=== PATIENT | male | born 1945 | race Caucasian/White ===

== ENCOUNTER → 2016-05-27 | Outpatient (CLI) | payer MEDICARE, OTHER ==
[~2016-05-27] MED LIST: ASPI-482 PO; CYCL10TA2 PO; DESM0.2T2 PO; DILT180C67 PO; DONE10TA7 PO; FINA5TAB4 PO; IMIP50TA3 PO; LEVE500T6 PO; LEVO500T8 PO; LOSA100T6 PO; POTA10TA5 PO; PRAM0.255 PO; TAMS0.4C2 PO; VENL37.56 PO; diclofenac PO
[2016-05-27 12:10] VITALS: BP 113/73
--- NOTE | 2016-05-27 16:50 | RAD ---
PROCEDURE MRI of the thoracic spine without contrast 05/27/2016 HISTORY Mid/lower back pain post fall. TECHNIQUE Unenhanced T1 weighted, T2 weighted and inversion recovery sagittal and T1 weighted and T2 weighted axial images of the thoracic spine were obtained. FINDINGS Very mild S-shaped curvature of the thoracolumbar spine is seen. Acute compression fractures are seen involving superior endplates of the T11 and T12 vertebral bodies. No retropulsion of bone fragments into the central spinal canal is seen. These vertebral bodies have lost approximately 15 percent of their normal height. No additional acute compression fracture of the thoracic vertebrae is seen. Schmorl's node formation is seen involving the superior endplates of the T for and T5 vertebral bodies. Degenerative signal changes are seen involving the discs of the lower thoracic spine. A small syrinx is seen involving the thoracic spinal cord at the T5-6 level. This measures 1.6 centimeter in length and 2 millimeters in greatest AP diameter. There is no evidence of Chiari 1 malformation on the localizing images of the cervical spine. No additional area of abnormal signal intensity is seen involving the thoracic spinal cord. Degenerative changes are seen involving the mid and lower thoracic disc spaces consisting of minimal generalized disc bulges and degenerative changes involving the facet joints. These findings do not result in definite areas of significant central spinal canal or neural foraminal stenosis. IMPRESSION Acute compression fractures are seen involving the T11 and T12 vertebral bodies. No retropulsion of bone fragments into the central spinal canal is seen. Electronically signed by: Wander Mccall MD (May 27, 2016 16:48:38)
== END | disposition home or self-care (01) ==
LOC: MRI 13:19
PROVIDERS: ATTEND Radiology Vascular & Interventional Radiology
DX: M54.6 Pain in thoracic spine (principal)
CPT/HCPCS: 72146

== ENCOUNTER 2016-05-28 06:22 | Outpatient (CLI) | payer MEDICARE, OTHER ==
[2016-05-28] VITALS (7 sets, daily range): BP systolic 123–187; BP diastolic 79–90
[~2016-05-28] VITALS: Ht 175.3 cm; Wt 90.7 kg
[2016-05-28] MEDS ORDERED: DILT180C67 PO (07:17)
[2016-05-28] MEDS ORDERED: IMIP50TA3 PO (07:17)
[2016-05-28] MEDS ORDERED: LEVE500T6 PO (07:17)
[2016-05-28] MEDS ORDERED: ASPI-482 PO (07:17)
[2016-05-28] MEDS ORDERED: DESM0.2T2 PO (07:17)
[2016-05-28] MEDS ORDERED: diclofenac PO (07:17)
[2016-05-28] MEDS ORDERED: LOSA100T6 PO (07:17)
[2016-05-28] MEDS ORDERED: CYCL10TA2 PO (07:17)
[2016-05-28] MEDS ORDERED: PRAM0.255 PO (07:17)
[2016-05-28] MEDS ORDERED: TAMS0.4C2 PO (07:17)
[2016-05-28] MEDS ORDERED: POTA10TA5 PO (07:17)
[2016-05-28] MEDS ORDERED: DONE10TA7 PO (07:17)
[2016-05-28] MEDS ORDERED: VENL37.56 PO (07:17)
[2016-05-28] MEDS ORDERED: FINA5TAB4 PO (07:17)
[2016-05-28] MEDS ORDERED: LEVO500T8 PO (07:17)
[2016-05-28 07:19] LABS: BASO % 1 % (0-3); EOS % 4 % (0-3); HEMATOCRIT 43.9 % (39.0-53.0); HEMOGLOBIN 14.5 g/dL (13.0-17.5); LYMPH # 1.5 x10^3/uL (1.0-4.8); LYMPH % 28 % (24-48); MEAN CORPUSCULAR HEMOGLOBIN 31 pg (25-35); MEAN CORPUSCULAR HGB CONC 33 g/dL (31-37); MEAN CORPUSCULAR VOLUME 93 fL (79-100); MONO % 10 % (0-9); NEUT % 57 % (31-73); PLATELET COUNT 238 x10^3/uL (140-400); RED CELL DISTRIBUTION WIDTH 13.9 % (11.5-14.5); WHITE BLOOD COUNT 5.3 x10^3/uL (4.0-11.0)
[2016-05-28 07:25] LABS: CALCIUM 8.5 mg/dL (8.5-10.1); CREATININE 1.1 mg/dL (0.7-1.3); GFR 65.8; POTASSIUM 4.5 mmol/L (3.5-5.1)
[2016-05-28 07:32] LABS: INR 1.3 (0.8-1.1)
[2016-05-28] MEDS ORDERED: IOHEXOL 300 MG/ML 50 ML VIAL. ONE (08:17)
[2016-05-28] MEDS ORDERED: LIDOCAINE 1% / SOD BICARB 8.4% 20 ML VIAL. IJ ONE ×2 (08:18→09:15)
[2016-05-28] MEDS ORDERED: FENTANYL PF 250 MCG/5 ML VIAL. ONE (09:00)
[2016-05-28] MEDS ORDERED: CEFAZOLIN 1GM IVPB FOR OMNI 50 ML IV ONE ×2 (09:00→09:15)
[2016-05-28] MEDS ORDERED: MIDAZOLAM HCL/PF 5 MG/5 ML VIAL ONE (09:00)
--- NOTE | 2016-05-28 09:10 | PDOC1 ---
IR Pre-Procedure H&P-Dr. Palomo H&P Update No significant change from my IR OP consultation done yesterday. 70 YO male with acute T11 and T12 fractures, with severe pain. T11 and T12 kyphoplasty planned today. DAVID GROVER MD May 28, 2016 09:10
[2016-05-28] MEDS ORDERED: MIDAZOLAM HCL/PF 5 MG/5 ML VIAL IV ONE (09:15)
[2016-05-28] MEDS ORDERED: FENTANYL PF 250 MCG/5 ML VIAL. IV ONE (09:15)
[2016-05-28] MEDS ORDERED: IOHEXOL 300 MG/ML 50 ML VIAL. IART ONE (09:15)
[2016-05-28] MEDS ORDERED: KETOROLAC TROMETHAMINE 30 MG/ML SYRINGE. IV PRN (10:15)
--- NOTE | 2016-05-28 10:18 | PDOC ---
MODERATE SEDATION ASSESSMENT RISKS/ALTERNATIVES Risks/Alternatives Risks and alternatives of this type of sedation and procedure discussed with: RISK/ALTERNATIVES: Patient H & P ON CHART H & P H & P on chart and reviewed for co-morbid conditions and appropriate labs. H&P ON CHART: Yes STATUS PREG STATUS ASSESSED: N/A MEDS/ALLERGIES REVIEWED Meds/Allergies Reviewed Medications and Allergies including time and route of recently administered narcotics and sedatives. MEDS/ALLERGIES REVIEWED: Yes ASA RATING ASA RATING: III AIRWAY ASSESSMENT Airway Assessment Airway patency, oral function limitations, presence of caps, crowns, dentures, partials, and ability to extend neck assessed. AIRWAY ASSESSMENT: Yes MALLAMPATI SCORE MALLAMPATI SCORE: III PRE-SEDATION ASSESSMENT PRE-SEDATION ASSESSMENT: Yes DAVID GROVER MD May 28, 2016 10:17
--- NOTE | 2016-05-28 10:20 | PDOC ---
Exam Network Professional Network Professional [place] Budget Consultant Budget Consultant F Ndumbu Pre-Procedure Diagnosis Pre-Procedure Diagnosis Recent T11 and T12 compression fractures, with severe pain Post-Procedure Diagnosis Post-Procedure Diagnosis Same Procedure Performed Procedure Performed Fluoro guided T11 and T12 kyphoplasty Type of Anesthesia Type of Anesthesia Local + Mod sedation Estimated Blood Loss EBL: Minimal Condition of Patient Condition of Patient Stable. No apparent complication Disposition Disposition Home from [facility] post recovery, if no problems. F/u with Dr Serna. Full report to follow. DAVID GROVER MD May 28, 2016 10:20
--- NOTE | 2016-05-28 13:13 | RAD ---
Fluoro guided T11 and T12 kyphoplasty Indication: 70-year-old male with recent T11 and T12 vertebral body compression fractures, with lifestyle limiting back pain. Fluoro time: 23.3 minutes Kerma-Area Product: 144 Gycm2 Moderate sedation: 50 minutes moderate sedation was provided utilizing a total of 3 mg Versed and 150 mcg fentanyl, IV. The patient was appropriately monitored by a qualified independent observer throughout the course of the moderate sedation. Antibiotic: A single dose of Ancef was administered within 1 hour of the procedure start time. Consent: The procedure was explained in its entirety to the patient and/or the patient's designated printing sales representative by a member of the treatment team. This included a discussion of risks and benefits and commonly accepted alternatives to the procedure, as well as expected consequences of no treatment at all. Discussion of risks included, but was not limited to, those that are most frequent and those that are rare, but possibly severe or life-threatening, as well as the possibility of unforeseen complications. Sterility: All elements of maximal sterile barrier technique, including the use of a cap, mask, sterile gown, sterile gloves, large sterile sheet, appropriate hand hygiene, and 2% chlorhexidine for cutaneous antisepsis (or acceptable alternative antiseptic per current guidelines) were utilized. Procedure: Informed was obtained from the patient. He was placed prone on the angiography table. Midline low thoracic spine was prepped and draped in the usual sterile fashion, utilizing all elements of maximal sterile barrier technique, as described above. Moderate sedation was provided with IV Fentanyl and Versed. 1 gram Ancef was given IV, prophylactically. Using aseptic technique, local anesthesia, and direct fluoroscopic guidance a 10 gauge vertebral augmentation needle was successfully introduced into anterior midline of the T12 vertebral body, via unilateral right transpedicular approach. Similarly, using aseptic technique, local anesthesia, and direct fluoroscopic guidance, an additional 10-gauge vertebral augmentation needle was successfully introduced into anterior midline of the T11 vertebral body, via left transpedicular access. 15 mm vertebral augmentation balloons were then coaxially introduced through the T11 and T12 kyphoplasty needles. The balloons were gently inflated under fluoroscopic control, creating pockets suitable to accept vertebral augmentation cement. Both balloons were then deflated and removed. Contrast opacified polymethylmethacrylate was then very slowly and carefully introduced through the vertebral augmentation needles at both levels, using strict fluoroscopic control. There was resulting good filling of the T11 and T12 vertebral bodies, without significant extraosseous extravasation of opacified cement. The vertebral augmentation needles were then removed and sterile dressings were applied. Patient tolerated the procedure well, without apparent complication. Impression: Successful, uneventful fluoro guided T11 and T12 kyphoplasty , as described.
== END 2016-05-28 12:25 | disposition home or self-care (01) ==
LOC: INTRAD 06:22
PROVIDERS: ATTEND Radiology Vascular & Interventional Radiology
DX: S22.088A Other fracture of T11-T12 vertebra, initial encounter for closed fracture (principal); I10 Essential (primary) hypertension; X58.XXXA Exposure to other specified factors, initial encounter; Y93.9 Activity, unspecified; Y92.9 Unspecified place or not applicable; Y99.9 Unspecified external cause status; Z98.41 Cataract extraction status, right eye; Z98.42 Cataract extraction status, left eye; Z95.1 Presence of aortocoronary bypass graft
CPT/HCPCS: 22513; 22515; 36415; 80048; 85027; 85610; C1725; C1892; J0690; J2250; J3010; Q9967

== ENCOUNTER 2019-12-26 08:39 | Emergency (ER) | payer MEDICARE ==
[~2019-12-26] VITALS: Ht 177.8 cm; Wt 80.0 kg
[~2019-12-26 08:39] MED LIST changes: +ATOR40TA59 PO; -DESM0.2T2 PO; +DESM0.2T5 PO; +LEVO500T59 PO; +LOSA100T14 PO; -LOSA100T6 PO; +MEMA10TA PO; +METO-239 PO; +POTA10TA12 PO; -POTA10TA5 PO
[2019-12-26 10:35] LABS: CALCIUM 8.9 mg/dL (8.5-10.1); GFR 72.6; POTASSIUM 3.8 mmol/L (3.5-5.1)
[2019-12-26 10:37] LABS: BASO % 0 % (0-3); EOS # 0.1 x10^3/uL (0.0-0.7); EOS % 1 % (0-3); HEMATOCRIT 44.2 % (39.0-53.0); HEMOGLOBIN 15.5 g/dL (13.0-17.5); LYMPH % 14 % (24-48); MEAN CORPUSCULAR HEMOGLOBIN 32 pg (25-35); MEAN CORPUSCULAR HGB CONC 35 g/dL (31-37); MEAN CORPUSCULAR VOLUME 93 fL (79-100); MONO # 0.6 x10^3/uL (0.0-1.1); MONO % 10 % (0-9); NEUT % 75 % (31-73); PLATELET COUNT 212 x10^3/uL (140-400); RED BLOOD COUNT 4.78 x10^6/uL (4.30-5.70); RED CELL DISTRIBUTION WIDTH 13.9 % (11.5-14.5); WHITE BLOOD COUNT 6.7 x10^3/uL (4.0-11.0)
[2019-12-26 10:40] LABS: ALBUMIN 3.3 g/dL (3.4-5.0); ALBUMIN/GLOBULIN RATIO 0.8 (1.0-1.7); TOTAL BILIRUBIN 0.4 mg/dL (0.2-1.0); TOTAL PROTEIN 7.2 g/dL (6.4-8.2)
[2019-12-26] MEDS ORDERED: IOHEXOL 300 MG/ML 100ML VIAL. IV ONE (10:45)
[2019-12-26] MEDS ORDERED: CONTRAST GIVEN. MC PRN (11:00)
--- NOTE | 2019-12-26 11:44 | RAD ---
Exam: CT abdomen/pelvis with intravenous contrast, CT lumbar spine with contrast Indication: Back pain and constipation for 1.5 weeks. Comparison: CT abdomen and pelvis 04/28/2015 Technique: Helical CT imaging performed of the abdomen and pelvis after the intravenous administration of 75 mL Omnipaque 300 intravenous contrast contrast. Sagittal and coronal reformats were obtained. Multiplanar CT lumbar spine images reconstructed from CT abdomen and pelvis. One or more of the following individualized dose reduction techniques were utilized for this examination: 1. Automated exposure control 2. Adjustment of the mA and/or kV according to patient size 3. Use of iterative reconstruction technique. FINDINGS: CT ABDOMEN AND PELVIS: Lower chest: 3 mm pulmonary nodule in the right lower lobe is unchanged from 2016. There is slightly increased reticular changes in the lung bases. The heart is normal in size. There is calcified coronary artery atherosclerosis. Liver: Liver is normal in size. There are few calcified granulomas. No focal lesion. Gallbladder/Biliary Tree: A few tiny calculi layering in the gallbladder lumen. Bile ducts are normal. Pancreas: Mild pancreatic atrophy, greatest in the head. There is suggestion of a slightly hyperdense mass in the pancreatic tail measuring 1.3 x 1.1 cm (image 25, series 2). No pancreatic duct dilatation. Spleen: Calcified splenic granulomas. No splenomegaly. Adrenal Glands: Normal. Kidneys/Ureters/Bladder: Kidneys are normal in size and enhance symmetrically. There is a 2 mm left renal calculus. No hydronephrosis. Ureters are normal. Mild circumferential bladder wall thickening. Reproductive Organs: Prostate gland is normal in size. Stomach, small bowel, and colon: Stomach is incompletely distended limiting evaluation. No small bowel obstruction. The appendix is normal. There is descending and sigmoid diverticulosis without inflammation. Large volume of stool in the colon. Vasculature: Abdominal aorta is normal in caliber. There is moderate calcified aortoiliac atherosclerosis and calcifications of the mesenteric arteries. Lymph Nodes: No lymphadenopathy. Peritoneum and retroperitoneum: No free fluid or free air. Bones: There is a superior endplate compression fracture of L1 with mild height loss, new from 2016 and likely acute. Compression fractures post vertebroplasty are seen at T11 and T12, also new from 2016. There is unchanged moderate degenerative disc disease and facet arthrosis at L4-L5 and L5-S1. Miscellaneous: Right inguinal hernia with new small fluid collection in the right groin along the spermatic cord measuring 2.[address] LUMBAR SPINE: There are 5 nonrib-bearing lumbar vertebral bodies. A superior endplate compression fracture of L1 with mild height loss is new from 2016 and likely acute. No retropulsion. There are compression fractures post vertebroplasty at T11-T12. Moderate disc space narrowing at L5-S1 with posterior endplate proliferation resulting in mild bilateral foraminal narrowing is unchanged. Probable left lateral recess narrowing at this level. There is mild disc space narrowing with tiny disc bulges at the other levels. No significant central canal narrowing. Severe right and moderate left facet arthrosis at L4-L5. Moderate bilateral facet arthrosis at L5-S1. Mild degenerative changes of the sacroiliac joints. Calcifications in the abdominal aorta and its branches noted. IMPRESSION: CT abdomen and pelvis impression: 1. No acute intra-abdominal/pelvic abnormality. 2. Suggestion of 1.3 cm mass in the pancreatic tail. Neoplasm is possible. Consider CT or MRI of the pancreas to further evaluate. 3. Large volume of stool. Descending and sigmoid colonic diverticulosis. 4. Left nephrolithiasis. Cholelithiasis. 5. Small right inguinal hernia with new small amount of fluid along the spermatic cord, nonspecific. CT lumbar spine impression: 1. New L1 compression fracture with mild height loss, likely acute. 2. Degenerative disc disease, greatest at L5-S1. Electronically signed by: Colleen Shaikh MD (12/26/2019 11:42 AM) [id number]
--- NOTE | 2019-12-26 11:50 | NUR ---
Assisted patient with incontience care @1150 Changed Breif
--- NOTE | 2019-12-26 11:55 | PHYS DOC ---
Past Medical History Past Medical History: Diabetes-Type II, High Cholesterol, Hypertension, Seizure Past Surgical History: Coronary Bypass Surgery Smoking Status: Current Every Day Smoker Alcohol Use: Occasionally Drug Use: None General Adult EDM: Chief Complaint: CONSTIPATION HPI: HPI: 74-year-old male past medical history of dementia and CAD, presents to the ED with patient's [id number] with concern for low back pain after patient fell 1 week ago, fall was unwitnessed. Has not had a bowel movement since then. No relief with Colace. Patient has a long history of urinary incontinence. On no AC. Review of Systems: Review of Systems: Constitutional: Denies fever or chills. [] Eyes: Denies change in visual acuity. [] HENT: Denies nasal congestion or sore throat. [] Respiratory: Denies cough or shortness of breath. [] Cardiovascular: Denies chest pain or edema. [] GI: Denies abdominal pain, nausea, vomiting, bloody stools or diarrhea. [] : Denies dysuria. [] Musculoskeletal: Denies joint pain. [] Integument: Denies rash. [] Neurologic: Denies headache, focal weakness or sensory changes. [] Endocrine: Denies polyuria or polydipsia. [] Lymphatic: Denies swollen glands. [] Psychiatric: Denies depression or anxiety. [] Heart Score: Risk Factors: Risk Factors: DM, Current or recent (<one month) smoker, HTN, HLP, family history of CAD, obesity. Risk Scores: Score 0 - 3: 2.5% MACE over next 6 weeks - Discharge Home Score 4 - 6: 20.3% MACE over next 6 weeks - Admit for Clinical Observation Score 7 - 10: 72.7% MACE over next 6 weeks - Early Invasive Strategies Current Medications: Current Medications Medications (Trade) Dose Ordered Sig/Suman Start Time Stop Time Status Last Admin Dose Admin Info (CONTRAST GIVEN -- Rx MONITORING) 1 each PRN DAILY PRN 12/26/19 11:00 12/28/19 10:59 Iohexol (Omnipaque 300 Mg/ml) 75 ml 1X ONCE 12/26/19 10:45 12/26/19 10:46 DC 12/26/19 10:49 75 ML Allergies: Allergies: Allergies Coded Allergies Type Severity Reaction Last Updated Verified No Known Drug Allergies 05/24/14 No Physical Exam: PE: Constitutional: Well developed, well nourished, no acute distress, non-toxic appearance. [] HENT: Normocephalic, atraumatic, bilateral external ears normal, oropharynx moist, no oral exudates, nose normal. [] Eyes: PERRLA, EOMI, conjunctiva normal, no discharge. [] Neck: Normal range of motion, no tenderness, supple, no stridor. [] Cardiovascular:Heart rate regular rhythm, no murmur [] Lungs & Thorax: Bilateral breath sounds clear to auscultation [] Abdomen: Bowel sounds normal, soft, no tenderness, no masses, no pulsatile masses. [] Skin: Warm, dry, no erythema, no rash. [] Back: _lumbar ttp midline, no CVA tenderness. [] Extremities: No tenderness, no cyanosis, no clubbing, ROM intact, no edema. [] Neurologic: Alert, at baseline, normal motor function, normal sensory function, no focal deficits noted. [] Psychologic: Affect normal, judgement normal, mood normal. [] Current Patient Data: Labs: Laboratory Tests Test 12/26/19 10:05 White Blood Count 6.7 x10^3/uL (4.0-11.0) Red Blood Count 4.78 x10^6/uL (4.30-5.70) Hemoglobin 15.5 g/dL (13.0-17.5) Hematocrit 44.2 % (39.0-53.0) Mean Corpuscular Volume 93 fL (79-100) Mean Corpuscular Hemoglobin 32 pg (25-35) Mean Corpuscular Hemoglobin Concent 35 g/dL (31-37) Red Cell Distribution Width 13.9 % (11.5-14.5) Platelet Count 212 x10^3/uL (140-400) Neutrophils (%) (Auto) 75 % (31-73) H Lymphocytes (%) (Auto) 14 % (24-48) L Monocytes (%) (Auto) 10 % (0-9) H Eosinophils (%) (Auto) 1 % (0-3) Basophils (%) (Auto) 0 % (0-3) Neutrophils # (Auto) 5.0 x10^3/uL (1.8-7.7) Lymphocytes # (Auto) 1.0 x10^3/uL (1.0-4.8) Monocytes # (Auto) 0.6 x10^3/uL (0.0-1.1) Eosinophils # (Auto) 0.1 x10^3/uL (0.0-0.7) Basophils # (Auto) 0.0 x10^3/uL (0.0-0.2) Sodium Level 133 mmol/L (136-145) L Potassium Level 3.8 mmol/L (3.5-5.1) Chloride Level 100 mmol/L (98-107) Carbon Dioxide Level 27 mmol/L (21-32) Anion Gap 6 (6-14) Blood Urea Nitrogen 18 mg/dL (8-26) Creatinine 1.0 mg/dL (0.7-1.3) Estimated GFR (Cockcroft-Gault) 72.6 BUN/Creatinine Ratio 18 (6-20) Glucose Level 111 mg/dL (70-99) H Calcium Level 8.9 mg/dL (8.5-10.1) Total Bilirubin 0.4 mg/dL (0.2-1.0) Aspartate Amino Transferase (AST) 15 U/L (15-37) Alanine Aminotransferase (ALT) 23 U/L (16-63) Alkaline Phosphatase 93 U/L (46-116) Total Protein 7.2 g/dL (6.4-8.2) Albumin 3.3 g/dL (3.4-5.0) L Albumin/Globulin Ratio 0.8 (1.0-1.7) L Laboratory Tests 12/26/19 10:05 Laboratory Tests 12/26/19 10:05 Vital Signs: Vital Signs Date Time Temp Pulse Resp B/P (MAP) Pulse Ox O2 Delivery O2 Flow Rate FiO2 12/26/19 10:53 69 150/69 (96) Room Air 12/26/19 10:32 94 12/26/19 09:40 98.3 17 98.3 EKG: EKG: [] Radiology/Procedures: Radiology/Procedures: IMAGING REPORT Signed PATIENT: SUDHAKAR CARDENAS ACCOUNT: [id number] : 1945 LOCATION: ER AGE: 74 SEX: M EXAM STATUS: REG ER ORD. PHYSICIAN: KATHERINE HUGGINS DO REASON: back pain and constipation x 1.5 wks PROCEDURE: CT LUMBAR SPINE RECONSTRUCTION Exam: CT abdomen/pelvis with intravenous contrast, CT lumbar spine with contrast Indication: Back pain and constipation for 1.5 weeks. Comparison: CT abdomen and pelvis 04/28/2015 Technique: Helical CT imaging performed of the abdomen and pelvis after the intravenous administration of 75 mL Omnipaque 300 intravenous contrast contrast. Sagittal and coronal reformats were obtained. Multiplanar CT lumbar spine images reconstructed from CT abdomen and pelvis. One or more of the following individualized dose reduction techniques were utilized for this examination: 1. Automated exposure control 2. Adjustment of the mA and/or kV according to patient size 3. Use of iterative reconstruction technique. FINDINGS: CT ABDOMEN AND PELVIS: Lower chest: 3 mm pulmonary nodule in the right lower lobe is unchanged from 2016. There is slightly increased reticular changes in the lung bases. The heart is normal in size. There is calcified coronary artery atherosclerosis. Liver: Liver is normal in size. There are few calcified granulomas. No focal lesion. Gallbladder/Biliary Tree: A few tiny calculi layering in the gallbladder lumen. Bile ducts are normal. Pancreas: Mild pancreatic atrophy, greatest in the head. There is suggestion of a slightly hyperdense mass in the pancreatic tail measuring 1.3 x 1.1 cm (image 25, series 2). No pancreatic duct dilatation. Spleen: Calcified splenic granulomas. No splenomegaly. Adrenal Glands: Normal. Kidneys/Ureters/Bladder: Kidneys are normal in size and enhance symmetrically. There is a 2 mm left renal calculus. No hydronephrosis. Ureters are normal. Mild circumferential bladder wall thickening. Reproductive Organs: Prostate gland is normal in size. Stomach, small bowel, and colon: Stomach is incompletely distended limiting evaluation. No small bowel obstruction. The appendix is normal. There is descending and sigmoid diverticulosis without inflammation. Large volume of stool in the colon. Vasculature: Abdominal aorta is normal in caliber. There is moderate calcified aortoiliac atherosclerosis and calcifications of the mesenteric arteries. Lymph Nodes: No lymphadenopathy. Peritoneum and retroperitoneum: No free fluid or free air. Bones: There is a superior endplate compression fracture of L1 with mild height loss, new from 2016 and likely acute. Compression fractures post vertebroplasty are seen at T11 and T12, also new from 2016. There is unchanged moderate degenerative disc disease and facet arthrosis at L4-L5 and L5-S1. Miscellaneous: Right inguinal hernia with new small fluid collection in the right groin along the spermatic cord measuring 2.[address] LUMBAR SPINE: There are 5 nonrib-bearing lumbar vertebral bodies. A superior endplate compression fracture of L1 with mild height loss is new from 2016 and likely acute. No retropulsion. There are compression fractures post vertebroplasty at T11-T12. Moderate disc space narrowing at L5-S1 with posterior endplate proliferation resulting in mild bilateral foraminal narrowing is unchanged. Probable left lateral recess narrowing at this level. There is mild disc space narrowing with tiny disc bulges at the other levels. No significant central canal narrowing. Severe right and moderate left facet arthrosis at L4-L5. Moderate bilateral facet arthrosis at L5-S1. Mild degenerative changes of the sacroiliac joints. Calcifications in the abdominal aorta and its branches noted. IMPRESSION: CT abdomen and pelvis impression: 1. No acute intra-abdominal/pelvic abnormality. 2. Suggestion of 1.3 cm mass in the pancreatic tail. Neoplasm is possible. Consider CT or MRI of the pancreas to further evaluate. 3. Large volume of stool. Descending and sigmoid colonic diverticulosis. 4. Left nephrolithiasis. Cholelithiasis. 5. Small right inguinal hernia with new small amount of fluid along the spermatic cord, nonspecific. CT lumbar spine impression: 1. New L1 compression fracture with mild height loss, likely acute. 2. Degenerative disc disease, greatest at L5-S1. Electronically signed by: Colleen Shaikh MD (12/26/2019 11:42 AM) [id number] DICTATED and SIGNED BY: COLLEEN SHAIKH MD DATE: 12/26/19 1142 Course & Med Decision Making: Course & Med Decision Making Pertinent Labs and Imaging studies reviewed. (See chart for details) Concern for constipation and back pain after patient fell a week and a half ago. There is a mild L1 compression fracture, no bowel obstruction. Labs unremarkable. Patient hemodynamically stable and afebrile. Patient in no active distress. discussed narcotic medications-daughter in law declined. Normal renal function-analgesia w/apap and motrin. Pt on colace tid. Also prescribed fiber and magnesium citrate. Encouraged urgent outpatient follow-up with PMD and neurosurgery for pts' mild lumber compression fracture. Life-threatening processes were considered but are low suspicion at this time, given history and physical exam. Pt was educated on all prescription medications and adverse effects. All patient's questions were answered and pt was stable at time of discharge. Differential includes aortic dissection, cauda equina syndrome, transverse myelitis, spinal cord compression, epidural abscess or hematoma, osteomyelitis, disc herniation, surgical abdomen, stable or unstable fracture, renal colic/urosepsis, musculoskeletal injury, traumatic injury, intraabdominal or pelvic bleeding, I spoken with the patient and her caregivers. I explained the patient's condition, diagnoses and treatment plan based on the information available to me at this time. I have answered the patient and her caregiver's questions and addressed any concerns. The patient and her caregivers have a good understanding of patient's diagnosis, condition and treatment plan as can be expected at this point. Vital signs have been stable. Patient's condition is stable and appropriate for discharge from the emergency department. Patient will pursue further outpatient evaluation with primary care physician or other designated or consulting physician as outlined in the discharge instructions. The patient and/or caregivers are agreeable to this plan of care and follow-up instructions have been explained in detail. The patient and/or caregivers have received these instructions in written form and have expressed an understanding of the discharge instructions. The patient and/or caregivers are aware that any significant change of condition or worsening of symptoms should prompt immediate return to this or the closest emergency department or call to 911. Anoop Disclaimer: Anoop Disclaimer: This electronic medical record was generated, in whole or in part, using a voice recognition dictation system. Departure Departure Impression: Primary Impression: Compression fracture of L1 vertebra Additional Impressions: Abdominal mass Constipation Disposition: 01 HOME, SELF-CARE Condition: STABLE Referrals: TATIANA LAND MD (PCP) To discuss CT abdomen/pelvis results/followup: Suggestion of 1.3 cm mass in the pancreatic tail. Neoplasm is possible. Consider CT or MRI of the pancreas to further evaluate. Patient Instructions: Back, Compression Fracture, Constipation, Adult Additional Instructions: Ronaldo Beauchamp MD Primary Specialties Neurological Surgery-for compression fracture [facility] Address: [address] [address] Scripts Magnesium Citrate (MAGNESIUM CITRATE) 296 Ml Solution 296 ML PO ONCE for constipation, #296 ML Drink half a bottle every 12 hours as needed for constipation Prov: KATHERINE HUGGINS DO 12/26/19 Psyllium Husk (Metamucil) 0.4 Gm Capsule 1 CAP PO BID for 30 Days, #60 CAP 0 Refills Prov: KATHERINE HUGGINS DO 12/26/19 Ibuprofen (IBUPROFEN) 600 Mg Tablet 600 MG PO PRN Q6HRS PRN for PAIN, #20 TAB take with food or milk Prov: KATHERINE HUGGINS DO 12/26/19 Justicifation of Admission Dx: Justifications for Admission: Justification of Admission Dx: N/A KATHERINE HUGGINS DO Dec 26, 2019 11:55
[2019-12-26] MEDS ORDERED: MAGN296S68 PO (12:57)
[2019-12-26] MEDS ORDERED: IBUP-1007 PO (12:57)
[2019-12-26] MEDS ORDERED: PSYL0.4C2 PO (12:57)
[2019-12-26 13:23] VITALS: BP 140/71
== END 2019-12-26 14:02 | disposition home or self-care (01) ==
LOC: ER 08:39
DX: S32.018A Other fracture of first lumbar vertebra, initial encounter for closed fracture (principal); K59.00 Constipation, unspecified; M54.5 Low back pain; E11.9 Type 2 diabetes mellitus without complications; E78.00 Pure hypercholesterolemia, unspecified; I10 Essential (primary) hypertension; F17.200 Nicotine dependence, unspecified, uncomplicated; Z98.890 Other specified postprocedural states; W18.39XA Other fall on same level, initial encounter; Y93.89 Activity, other specified; Y92.89 Other specified places as the place of occurrence of the external cause; Y99.8 Other external cause status
CPT/HCPCS: 36415; 74177; 80053; 85025; 99285; Q9967

== ENCOUNTER → 2020-01-11 | Outpatient (CLI) | payer MEDICARE ==
[2019-12-26 13:23] VITALS: BP 140/71
[~2020-01-11] MED LIST changes: +GADOTERATE 7.5 MMOL/15ML VIAL. IVP ONE; +IBUP-1007 PO; +MAGN296S68 PO; +PSYL0.4C2 PO
--- NOTE | 2020-01-11 16:59 | KCIC ---
MRI abdomen with and without contrast: Clinical indications: Possible mass of the tail of the pancreas seen on recent abdomen CT study. COMPARISON: Abdomen CT dated December 26, 2019. Technique: T1 and T2 weighted MRI sequences of the abdomen was performed in the axial and coronal planes. In phase and out of phase MRI sequences were performed as well. After IV infusion of 14 cc of gadolinium, multiphasic postcontrast enhanced T1 weighted MRI sequences of the abdomen were performed. Findings: There is small focus of decreased signal within the posterior medial aspect of the right lobe of the liver which corresponds to area of calcification seen on the CT study. No other liver lesion is seen. The spleen is homogeneous in appearance. The spleen is not enlarged. There is mild diffuse fatty atrophy of the pancreas. Within the tail of pancreas, there is an enhancing nodule which corresponds to CT finding. This measures 17 mm in size. No peripancreatic edema or free fluid is seen. No dilatation of the main pancreatic duct is seen. The gallbladder appears normal. No abnormal dilatation of the extrahepatic biliary tree is seen. No adrenal mass is evident. No renal mass or hydronephrosis is seen. No focal aneurysmal dilatation of the abdominal aorta is seen. No enlarged abdominal lymphadenopathy is seen. No ascites is seen. There is edema of the L1 vertebral body corresponding to a compression fracture seen on recent CT study. In addition, there is edema of the superior endplate of L3. This may represent a subtle compression fracture here as well. IMPRESSION: There is mild diffuse atrophy of the pancreas. There is a 17 mm enhancing nodule of the tail of the pancreas. This could represent enhancing pancreatic parenchyma without fatty atrophy or could represent a pancreatic lesion. Therefore, this lesion may be followed with short-term abdomen CT and IV contrast evaluation in 3 months or could be further evaluated now with endoscopic ultrasound. Correlation with CEA 19-9 is recommended as well. No liver mass or liver metastatic disease is seen. Acute/subacute compression fracture of L1 and possible acute/subacute compression fracture of the superior endplate of L3. Electronically signed by: Amari King MD (01/11/2020 4:56 PM) [id number]
== END ==
LOC: KCIC MRI 08:55
PROVIDERS: ATTEND Family Medicine
DX: K86.89 Other specified diseases of pancreas (principal)
CPT/HCPCS: 74183; A9575